=== PATIENT | female | born 1970 | race Caucasian/White ===

== ENCOUNTER 2021-11-11 22:27 | Emergency (ER) | payer SELFPAY ==
[~2021-11-11] VITALS: Ht 165.1 cm; Wt 75.0 kg
[2021-11-11 22:38] VITALS: BP 126/76
[2021-11-12] MEDS ORDERED: IBUPROFEN 600 MG TABLET PO ONE (00:45)
[2021-11-12] MEDS ORDERED: ACETAMINOPHEN 500 MG TABLET PO ONE (00:45)
[2021-11-12] MEDS ORDERED: IBUP-1554 PO (00:49)
== END 2021-11-12 01:01 | disposition home or self-care (01) ==
LOC: EMS 22:29
DX: L55.9 Sunburn, unspecified (principal); F20.9 Schizophrenia, unspecified; E11.9 Type 2 diabetes mellitus without complications; Z59.00 Homelessness unspecified
CPT/HCPCS: 99281; Z7502

== ENCOUNTER 2021-12-11 04:28 | Emergency (ER) | payer SELFPAY ==
[~2021-12-11] VITALS: Ht 165.1 cm; Wt 68.2 kg
[~2021-12-11 04:28] MED LIST: IBUP-1554 PO
[2021-12-11 05:14] LABS: BASOPHILS % (AUTO) 0.7 % (0.0-2.0); EOSINOPHILS % (AUTO) 0.5 % (1.0-6.0); HEMATOCRIT 43.1 % (36-46); HEMOGLOBIN 14.4 g/dL (12.0-16.0); LYMPHOCYTES # (AUTO) 2.1 K/uL (1.0-4.8); LYMPHOCYTES % (AUTO) 27.1 % (22.0-44.0); MEAN CORPUSCULAR HEMOGLOBIN 27.1 pg (26.0-34.0); MEAN CORPUSCULAR HGB CONC 33.5 G/dL (31.0-37.0); MEAN CORPUSCULAR VOLUME 81 fL (80-100); MONOCYTES # (AUTO) 0.5 K/uL (0.1-1.0); MONOCYTES % (AUTO) 6.9 % (2.0-9.0); NEUTROPHILS # (AUTO) 5.1 K/uL (1.8-7.7); NEUTROPHILS % (AUTO) 64.8 % (40.0-70.0); PLATELET COUNT (AUTO) 312 K/uL (150-450); RED BLOOD CELL COUNT(AUTO) 5.32 MIL/uL (4.00-5.20)
[2021-12-11 05:17] LABS: ANION GAP 9 mmol/L (8-16); CALCIUM, TOTAL 9.1 mg/dL (8.8-10.5); CARBON DIOXIDE 27 mmol/L (22-29); CHLORIDE 98 mmol/L (98-107); CREATININE 0.72 mg/dL (0.60-1.30); GLOMERULAR FILTR. RATE CALC > 60 mL/min (>60); GLUCOSE,RANDOM 397 mg/dL (70-110); POTASSIUM 3.9 mmol/L (3.5-5.1); SODIUM SERUM 134 mmol/L (136-145); UREA NITROGEN, BLOOD 9 mg/dL (7-18)
[2021-12-11 05:23] LABS: ALANINE AMINOTRANSFERASE 22 U/L (12-78); ALBUMIN 3.9 g/dL (3.4-5.0); ALKALINE PHOSPHATASE 127 U/L (46-116); ASPARTATE AMINOTRANSFERASE 12 U/L (15-37); BILIRUBIN,TOTAL 0.4 mg/dL (0.1-1.0); TOTAL PROTEIN, SERUM 7.9 g/dL (6.4-8.2)
[2021-12-11] MEDS ORDERED: INSULIN REGULAR, HUMAN 100 UNITS/ML SQ ONE (06:00)
[2021-12-11] MEDS ORDERED: LORazepam 1 MG TABLET PO ONE (06:15)
[2021-12-11 06:30] VITALS: BP 124/68
[2021-12-12] MEDS ORDERED: DOXY-354 PO (17:16)
== END 2021-12-11 06:34 | disposition home or self-care (01) ==
LOC: EMS 04:29
DX: F15.10 Other stimulant abuse, uncomplicated (principal); E11.65 Type 2 diabetes mellitus with hyperglycemia; F17.210 Nicotine dependence, cigarettes, uncomplicated; Z79.899 Other long term (current) drug therapy; Z59.00 Homelessness unspecified
CPT/HCPCS: 99283; 80053; 85025; 36415; 96372; G0480; J1815

== ENCOUNTER 2021-12-12 13:17 | Emergency (ER) | payer MEDICARE ==
[~2021-12-12] VITALS: Ht 160 cm; Wt 77.3 kg
[2021-12-12 13:32] VITALS: BP 125/91
[2021-12-12] MEDS ORDERED: SODIUM CHLORIDE 0.9% 1,000 ML IV ONE (13:45)
[2021-12-12] MEDS ORDERED: INSULIN REGULAR, HUMAN 100 UNITS/ML IVP ONE (13:45)
[2021-12-12] MEDS ORDERED: DOXY-354 PO (17:16)
== END 2021-12-12 13:48 | disposition left against medical advice (07) ==
LOC: EMS 13:18
DX: T23.221A Burn of second degree of single right finger (nail) except thumb, initial encounter (principal); E11.9 Type 2 diabetes mellitus without complications; F15.90 Other stimulant use, unspecified, uncomplicated; F17.210 Nicotine dependence, cigarettes, uncomplicated; Z79.899 Other long term (current) drug therapy; F41.9 Anxiety disorder, unspecified; X08.8XXA Exposure to other specified smoke, fire and flames, initial encounter; Y93.89 Activity, other specified; Y92.89 Other specified places as the place of occurrence of the external cause; Y99.8 Other external cause status
CPT/HCPCS: 99283; Z7502

== ENCOUNTER 2021-12-12 15:27 | Emergency (ER) | payer SELFPAY ==
[~2021-12-12] VITALS: Ht 160 cm; Wt 77.3 kg
[2021-12-12] MEDS ORDERED: HydrOXYzine HCL 25 MG TABLET PO ONE (16:00)
[2021-12-12] MEDS ORDERED: SODIUM CHLORIDE 0.9% 1,000 ML IV ONE (16:00)
[2021-12-12] MEDS ORDERED: ACETAMINOPHEN 500 MG TABLET PO ONE (16:00)
[2021-12-12 16:34] LABS: BASOPHILS % (AUTO) 0.6 % (0.0-2.0); EOSINOPHILS % (AUTO) 0.9 % (1.0-6.0); HEMATOCRIT 39.8 % (36-46); HEMOGLOBIN 13.2 g/dL (12.0-16.0); LYMPHOCYTES # (AUTO) 2.5 K/uL (1.0-4.8); LYMPHOCYTES % (AUTO) 43.4 % (22.0-44.0); MEAN CORPUSCULAR HGB CONC 33.2 G/dL (31.0-37.0); MEAN CORPUSCULAR VOLUME 81 fL (80-100); MONOCYTES # (AUTO) 0.5 K/uL (0.1-1.0); MONOCYTES % (AUTO) 8.2 % (2.0-9.0); NEUTROPHILS # (AUTO) 2.7 K/uL (1.8-7.7); NEUTROPHILS % (AUTO) 46.9 % (40.0-70.0); PLATELET COUNT (AUTO) 281 K/uL (150-450); RED CELL DISTRIBUTION WIDTH 15.9 % (11.5-14.5)
[2021-12-12 16:42] LABS: ANION GAP 8 mmol/L (8-16); CALCIUM, TOTAL 8.3 mg/dL (8.8-10.5); CARBON DIOXIDE 27 mmol/L (22-29); CHLORIDE 97 mmol/L (98-107); CREATININE 0.62 mg/dL (0.60-1.30); GLUCOSE,RANDOM 345 mg/dL (70-110); POTASSIUM 3.6 mmol/L (3.5-5.1); SODIUM SERUM 132 mmol/L (136-145); UREA NITROGEN, BLOOD 8 mg/dL (7-18)
[2021-12-12 16:44] LABS: GLOMERULAR FILTR. RATE CALC > 60 mL/min (>60)
[2021-12-12 16:54] LABS: ALANINE AMINOTRANSFERASE 18 U/L (12-78); ALBUMIN 3.3 g/dL (3.4-5.0); ALKALINE PHOSPHATASE 111 U/L (46-116); ASPARTATE AMINOTRANSFERASE 12 U/L (15-37); BILIRUBIN,TOTAL 0.3 mg/dL (0.1-1.0); HCG,QUANTITATIVE 1 mIU/mL (0-6)
[2021-12-12 17:08] VITALS: BP 136/82
[2021-12-12] MEDS ORDERED: ALBUTEROL SULFATE HFA 90 MCG/PUFF 8 GM INHALER IH ONE (17:15)
[2021-12-12] MEDS ORDERED: DOXYCYCLINE HYCLATE 100 MG TABLET PO ONE (17:15)
[2021-12-12] MEDS ORDERED: DOXY-354 PO (17:16)
== END 2021-12-12 17:24 | disposition home or self-care (01) ==
LOC: EMS 15:27
DX: L03.011 Cellulitis of right finger (principal); E11.9 Type 2 diabetes mellitus without complications; F15.90 Other stimulant use, unspecified, uncomplicated; J44.9 Chronic obstructive pulmonary disease, unspecified; F17.210 Nicotine dependence, cigarettes, uncomplicated
CPT/HCPCS: 80053; 82962; 84702; 85025; 94640; 96360; 99284; J3535; 36415-L1; 36415-TC

== ENCOUNTER 2022-01-07 20:07 | Emergency (ER) | payer SELFPAY ==
[~2022-01-07] VITALS: Ht 162.6 cm; Wt 63.6 kg
[~2022-01-07 20:07] MED LIST changes: +DOXY-354 PO
[2022-01-07] MEDS ORDERED: METF-1211 PO (20:18)
[2022-01-07 20:30] LABS: GLUCOSE,POINT OF CARE 545 MG/DL (70-110)
[2022-01-07] MEDS ORDERED: LORazepam 2 MG TABLET PO ONE (21:15)
[2022-01-07 21:28] VITALS: BP 141/83
[2022-01-07] MEDS ORDERED: PERMETHRIN 5% 60 GM CREAM TP ONE (21:45)
== END 2022-01-07 21:54 | disposition home or self-care (01) ==
LOC: EMS 20:17
DX: R23.4 Changes in skin texture (principal); R21 Rash and other nonspecific skin eruption; E11.9 Type 2 diabetes mellitus without complications; F17.210 Nicotine dependence, cigarettes, uncomplicated; F15.90 Other stimulant use, unspecified, uncomplicated; Z59.00 Homelessness unspecified
CPT/HCPCS: 82962; 99282

== ENCOUNTER 2022-01-08 09:13 | Emergency (ER) | payer MEDICARE, MEDICAID ==
[~2022-01-08] VITALS: Ht 162.6 cm; Wt 81.8 kg
[~2022-01-08 09:13] MED LIST changes: -DOXY-354 PO; -IBUP-1554 PO; +METF-1211 PO
[2022-01-08 10:27] VITALS: BP 146/85
== END 2022-01-08 10:45 | disposition home or self-care (01) ==
LOC: EMS 09:13
DX: F15.10 Other stimulant abuse, uncomplicated (principal); R23.4 Changes in skin texture; R21 Rash and other nonspecific skin eruption; E11.9 Type 2 diabetes mellitus without complications; F17.210 Nicotine dependence, cigarettes, uncomplicated; F17.290 Nicotine dependence, other tobacco product, uncomplicated; Z59.00 Homelessness unspecified
CPT/HCPCS: 99283; Z7502

== ENCOUNTER 2022-01-08 13:33 | Inpatient (IN) | payer MEDICARE, MEDICAID ==
[~2022-01-08] VITALS: Ht 157.5 cm; Wt 71.0 kg
[2022-01-08 14:06] LABS: GLUCOSE,POINT OF CARE 559 MG/DL (70-110)
[2022-01-08] MEDS ORDERED: INSULIN REGULAR, HUMAN 100 UNITS/ML IVP ONE (14:45)
[2022-01-08] MEDS ORDERED: SODIUM CHLORIDE 0.9% 2,000 ML IV ONE (14:45)
[2022-01-08 15:19] LABS: EOSINOPHILS % (AUTO) 0.6 % (1.0-6.0); HEMATOCRIT 39.6 % (36-46); HEMOGLOBIN 13.4 g/dL (12.0-16.0); LYMPHOCYTES # (AUTO) 2.5 K/uL (1.0-4.8); LYMPHOCYTES % (AUTO) 26.8 % (22.0-44.0); MEAN CORPUSCULAR HEMOGLOBIN 27.4 pg (26.0-34.0); MEAN CORPUSCULAR HGB CONC 33.7 G/dL (31.0-37.0); MEAN CORPUSCULAR VOLUME 81 fL (80-100); MONOCYTES # (AUTO) 0.5 K/uL (0.1-1.0); MONOCYTES % (AUTO) 5.5 % (2.0-9.0); NEUTROPHILS # (AUTO) 6.3 K/uL (1.8-7.7); NEUTROPHILS % (AUTO) 66.1 % (40.0-70.0); PLATELET COUNT (AUTO) 360 K/uL (150-450); RED BLOOD CELL COUNT(AUTO) 4.88 MIL/uL (4.00-5.20); RED CELL DISTRIBUTION WIDTH 15.6 % (11.5-14.5)
[2022-01-08 15:37] LABS: ALANINE AMINOTRANSFERASE 18 U/L (12-78); ALBUMIN 3.2 g/dL (3.4-5.0); ALKALINE PHOSPHATASE 162 U/L (46-116); ANION GAP 5 mmol/L (8-16); ASPARTATE AMINOTRANSFERASE 9 U/L (15-37); BILIRUBIN,TOTAL 0.3 mg/dL (0.1-1.0); CALCIUM, TOTAL 9.1 mg/dL (8.8-10.5); CARBON DIOXIDE 29 mmol/L (22-29); CHLORIDE 97 mmol/L (98-107); CREATININE 0.65 mg/dL (0.60-1.30); LIPASE 176 U/L (73-393); POTASSIUM 3.7 mmol/L (3.5-5.1); SODIUM SERUM 131 mmol/L (136-145); TOTAL PROTEIN, SERUM 7.5 g/dL (6.4-8.2); UREA NITROGEN, BLOOD 6 mg/dL (7-18)
[2022-01-08 15:41] LABS: LACTIC ACID 1.3 mmol/L (0.4-2.0)
[2022-01-08 15:48] LABS: GLOMERULAR FILTR. RATE CALC > 60 mL/min (>60); GLUCOSE,RANDOM 460 mg/dL (70-110)
[2022-01-08] MEDS ORDERED: LORazepam 2 MG/ML VIAL IVP ONE (16:30)
[2022-01-08] MEDS ORDERED: OLANZapine 5 MG TABLET PO ONE ×2 (16:30→21:00)
[2022-01-08] MEDS ORDERED: 0.9% SODIUM CHLORIDE 10 ML SYRINGE IVP PRN (17:15)
[2022-01-08] MEDS ORDERED: ONDANSETRON HCL 4 MG/2 ML VIAL IVP PRN ×2 (17:15→17:30)
[2022-01-08] MEDS ORDERED: ACETAMINOPHEN 325 MG TABLET PO PRN ×2 (17:15→17:30)
[2022-01-08] MEDS ORDERED: DEXTROSE 50%-WATER 25 GM/50 ML SYRINGE IVP PRN (17:30)
[2022-01-08] MEDS ORDERED: SODIUM CHLORIDE 0.9% 1,000 ML IV ONE (17:30)
[2022-01-08 17:56] LABS: GLUCOMETER DEV NAME(LOC) ERT.5; GLUCOSE,POINT OF CARE 128 MG/DL (70-110)
[2022-01-08] MEDS: INSULIN GLARGINE,HUM.REC.ANLOG 100 UNITS/ML SQ SCH (20:47)
[2022-01-08] MEDS: DOCUSATE SODIUM 100 MG CAPSULE PO SCH (21:00)
[2022-01-08 21:01] LABS: GLUCOMETER DEV NAME(LOC) ERT.5; GLUCOSE,POINT OF CARE 325 MG/DL (70-110)
[2022-01-08 21:03] LABS: COVID AG,FIA SOURCE NASAL SWAB
[2022-01-08] MEDS: HEPARIN SODIUM,PORCINE 5,000 UNITS/ML VIAL SQ SCH (23:37)
[2022-01-08 23:45] VITALS: BP 109/59
[2022-01-09 04:55] VITALS: BP 140/78
[2022-01-09] MEDS: INSULIN LISPRO 100 UNITS/ML SQ PRN ×4 (05:27→20:47)
[2022-01-09 05:36] LABS: GLUCOMETER DEV NAME(LOC) 6N.1; GLUCOSE,POINT OF CARE 320 MG/DL (70-110)
[2022-01-09 08:29] VITALS: BP 146/85
[2022-01-09] MEDS: FAMOTIDINE 20 MG TABLET PO SCH (09:48)
[2022-01-09] MEDS: DOCUSATE SODIUM 100 MG CAPSULE PO SCH ×2 (09:48→21:00)
[2022-01-09] MEDS: HEPARIN SODIUM,PORCINE 5,000 UNITS/ML VIAL SQ SCH ×2 (09:48→17:11)
[2022-01-09] MEDS ORDERED: INSULIN GLARGINE,HUM.REC.ANLOG 100 UNITS/ML SQ SCH (10:15)
[2022-01-09] MEDS: RisperiDONE 2 MG TABLET PO SCH ×2 (13:37→20:47)
[2022-01-09 14:11] LABS: GLUCOMETER DEV NAME(LOC) 6N.2B; GLUCOSE,POINT OF CARE 193 MG/DL (70-110)
[2022-01-09 17:15] VITALS: BP 153/79
[2022-01-09 19:01] LABS: GLUCOMETER DEV NAME(LOC) 6N.1; GLUCOSE,POINT OF CARE 247 MG/DL (70-110)
[2022-01-09 20:45] VITALS: BP 139/76
[2022-01-09] MEDS: INSULIN GLARGINE,HUM.REC.ANLOG 100 UNITS/ML SQ SCH (20:48)
[2022-01-09 22:01] LABS: GLUCOMETER DEV NAME(LOC) 6N.1; GLUCOSE,POINT OF CARE 225 MG/DL (70-110)
[2022-01-10] MEDS: HEPARIN SODIUM,PORCINE 5,000 UNITS/ML VIAL SQ SCH ×5 (01:59→23:00)
[2022-01-10 05:30] VITALS: BP 137/90
[2022-01-10] MEDS: INSULIN LISPRO 100 UNITS/ML SQ PRN ×4 (05:47→19:40)
[2022-01-10 06:46] LABS: GLUCOMETER DEV NAME(LOC) 6N.2B; GLUCOSE,POINT OF CARE 210 MG/DL (70-110)
[2022-01-10] MEDS: RisperiDONE 2 MG TABLET PO SCH ×2 (08:30→19:39)
[2022-01-10] MEDS: DOCUSATE SODIUM 100 MG CAPSULE PO SCH ×2 (08:30→19:39)
[2022-01-10] MEDS: FAMOTIDINE 20 MG TABLET PO SCH (08:30)
[2022-01-10] MEDS: INSULIN GLARGINE,HUM.REC.ANLOG 100 UNITS/ML SQ SCH ×2 (08:38→19:41)
[2022-01-10] MEDS: NICOTINE 21 MG/24 HOUR PATCH TD SCH (12:08)
[2022-01-10] MEDS: LORazepam 1 MG TABLET PO PRN ×3 (12:12→22:59)
[2022-01-10 14:31] VITALS: BP 149/95
[2022-01-10 15:20] LABS: GLUCOMETER DEV NAME(LOC) 6N.1; GLUCOSE,POINT OF CARE 361 MG/DL (70-110)
[2022-01-10 19:03] VITALS: BP 146/90
[2022-01-10] MEDS: ZOLPIDEM TARTRATE 5 MG TABLET PO PRN (19:39)
[2022-01-10 21:46] LABS: GLUCOMETER DEV NAME(LOC) 6N.2B; GLUCOSE,POINT OF CARE 193 MG/DL (70-110)
[2022-01-10 21:46] LABS: GLUCOMETER DEV NAME(LOC) 6N.1; GLUCOSE,POINT OF CARE 333 MG/DL (70-110)
[2022-01-11 05:26] VITALS: BP 129/91
[2022-01-11] MEDS: INSULIN LISPRO 100 UNITS/ML SQ PRN ×4 (05:35→20:40)
[2022-01-11 07:09] VITALS: BP 146/100
[2022-01-11] MEDS: LORazepam 1 MG TABLET PO PRN ×3 (08:05→19:47)
[2022-01-11] MEDS: RisperiDONE 2 MG TABLET PO SCH ×2 (08:08→20:34)
[2022-01-11] MEDS: HEPARIN SODIUM,PORCINE 5,000 UNITS/ML VIAL SQ SCH ×2 (08:08→15:32)
[2022-01-11] MEDS: FAMOTIDINE 20 MG TABLET PO SCH (08:08)
[2022-01-11] MEDS: NICOTINE 21 MG/24 HOUR PATCH TD SCH (08:08)
[2022-01-11] MEDS: DOCUSATE SODIUM 100 MG CAPSULE PO SCH ×2 (08:08→20:34)
[2022-01-11] MEDS: INSULIN GLARGINE,HUM.REC.ANLOG 100 UNITS/ML SQ SCH ×2 (08:11→20:40)
[2022-01-11 15:31] LABS: GLUCOMETER DEV NAME(LOC) 6N.2B; GLUCOSE,POINT OF CARE 345 MG/DL (70-110)
[2022-01-11 15:31] LABS: GLUCOMETER DEV NAME(LOC) 6N.2B; GLUCOSE,POINT OF CARE 340 MG/DL (70-110)
[2022-01-11 19:15] VITALS: BP 139/86
[2022-01-11] MEDS: ZOLPIDEM TARTRATE 5 MG TABLET PO PRN (20:34)
[2022-01-11 22:51] LABS: GLUCOMETER DEV NAME(LOC) 6N.1; GLUCOSE,POINT OF CARE 398 MG/DL (70-110)
[2022-01-11 22:51] LABS: GLUCOMETER DEV NAME(LOC) 6N.1; GLUCOSE,POINT OF CARE 260 MG/DL (70-110)
[2022-01-12 05:45] VITALS: BP 134/73
[2022-01-12] MEDS: LORazepam 1 MG TABLET PO PRN (05:55)
[2022-01-12] MEDS: INSULIN LISPRO 100 UNITS/ML SQ PRN (06:00)
[2022-01-12 07:06] LABS: GLUCOMETER DEV NAME(LOC) 6N.1; GLUCOSE,POINT OF CARE 327 MG/DL (70-110)
[2022-01-12] MEDS: HEPARIN SODIUM,PORCINE 5,000 UNITS/ML VIAL SQ SCH ×2 (08:00)
[2022-01-12] MEDS: DOCUSATE SODIUM 100 MG CAPSULE PO SCH (09:00)
[2022-01-12] MEDS: NICOTINE 21 MG/24 HOUR PATCH TD SCH (09:00)
[2022-01-12] MEDS: RisperiDONE 2 MG TABLET PO SCH (09:00)
[2022-01-12] MEDS: FAMOTIDINE 20 MG TABLET PO SCH (09:00)
[2022-01-12] MEDS ORDERED: INSULIN GLARGINE,HUM.REC.ANLOG 100 UNITS/ML SQ SCH (09:00)
== END 2022-01-12 09:35 | disposition left against medical advice (07) | DRG 639 ==
LOC: EMS 13:33 → 6S 20:48 → 6N 01-09 09:42
PROVIDERS: ADMIT Internal Medicine; ATTEND Internal Medicine
DX: E11.649 Type 2 diabetes mellitus with hypoglycemia without coma (principal); F20.9 Schizophrenia, unspecified; Z20.822 Contact with and (suspected) exposure to COVID-19; E86.0 Dehydration; F15.90 Other stimulant use, unspecified, uncomplicated; F17.200 Nicotine dependence, unspecified, uncomplicated; L30.9 Dermatitis, unspecified; F41.9 Anxiety disorder, unspecified; Z53.29 Procedure and treatment not carried out because of patient's decision for other reasons; Z59.00 Homelessness unspecified; Z79.4 Long term (current) use of insulin; Z79.899 Other long term (current) drug therapy; Z91.19 Patient's noncompliance with other medical treatment and regimen; Z91.14 Patient's other noncompliance with medication regimen; Z71.89 Other specified counseling
CPT/HCPCS: 71045; 80053; 82009; 82962; 83036; 83605; 83690; 84484; 85025; 93005; 99285; G0480; J1644; J1815; J2060; J7030; 36415-L1; 36415-TC